=== PATIENT | male | born 1965 | race African-American/Black ===

== ENCOUNTER → 2019-08-02 | Emergency (ER) | payer OTHER ==
[~2019-08-02] VITALS: Ht 170.2 cm; Wt 75.7 kg
[~2019-08-02] MED LIST: AUGMENTIN 875-1 EAC1 ORAL; GUAIFENESI100 MG/5 M ORAL; TESSALON PERLE100 MG ORAL; VENTOLIN HFA18 GM INH
--- NOTE | 2019-08-02 13:35 | NUR ---
ED Nurse Note: Pt ambulated to ED with c/o upper respiratory infection x 3 weeks. Pt is AOx4, on RA, placed on bed.
[2019-08-02 13:40] VITALS: BP 160/86
--- NOTE | 2019-08-02 13:57 | NUR ---
ED Nurse Note: X-ray done
[2019-08-02 14:00] VITALS: BP 160/86
--- NOTE | 2019-08-02 14:00 | NUR ---
ER DISCHARGE NOTE: Pt is cleared to be discharge per ERMD,. Pt is AOx4, on RA, VSS. pt was given dc and prescription instructions, pt was able to verbalize understanding, pt id band removed. pt is able to ambulate with steady gait. Pt left ER with all belongings.
--- NOTE | 2019-08-02 14:03 | Emergency Room Report ---
History of Present Illness General Chief Complaint: Upper Respiratory Illness Source: Patient Present Illness HPI 54-year-old male with history of tobacco smoke here complaining of 3 weeks of cough and congestion with phlegm production. Has not taken medication for symptom relief. Patient reports that he used to drink 3 or 4 cigarettes a day for the past 14 years however has not been able to smoke any in the past 3 weeks. Denies any fever and chills and sore limb at this time. Denies chest pain, shortness of breath, palpitation, headache and dizziness. Sitting comfortably with stable vital signs. Denies drug use, vaping, alcohol intake. Allergies: Coded Allergies: No Known Allergies (Unverified , 08/02/19) Patient History Past Medical History: see triage record Past Surgical History: unable to obtain Pertinent Family History: none Social History: Reports: smoking Immunizations: UTD Reviewed Nursing Documentation: PMH: Agreed; PSxH: Agreed Nursing Documentation-PMH Past Medical History: No Stated History Review of Systems All Other Systems: negative except mentioned in HPI Physical Exam Vital Signs Date Time Temp Pulse Resp B/P (MAP) Pulse Ox O2 Delivery O2 Flow Rate FiO2 08/02/19 13:35 98.2 78 17 160/86 (110) 99 Room Air Sp02 EP Interpretation: reviewed, normal General Appearance: no apparent distress, alert, GCS 15, non-toxic Head: normocephalic, atraumatic Eyes: bilateral eye normal inspection, bilateral eye PERRL ENT: hearing grossly normal, no angioedema, normal voice, nasal congestion, pharyngeal erythema Neck: full range of motion, supple, thyroid normal, supple/symm/no masses Respiratory: chest non-tender, lungs clear, normal breath sounds, no rhonchi, no respiratory distress, no retraction, no accessory muscle use, no wheezing, speaking full sentences Cardiovascular #1: regular rate, rhythm, no edema, no murmur Gastrointestinal: non tender, soft Musculoskeletal: back normal, no calf tenderness Neurologic: alert, motor strength/tone normal, oriented x3, sensory intact, responsive, speech normal Psychiatric: normal inspection, judgement/insight normal Skin: no rash Lymphatic: no adenopathy Medical Decision Making PA Attestation All diagnoses and treatment plans were reviewed and discussed with my supervising physician Dr. Cortes Diagnostic Impression: Primary Impression: Acute bacterial bronchitis ER Course 54-year-old male with history of tobacco smoke here complaining of 3 weeks of cough and congestion with phlegm production. Has not taken medication for symptom relief. Patient reports that he used to drink 3 or 4 cigarettes a day for the past 14 years however has not been able to smoke any in the past 3 weeks. Denies any fever and chills and sore limb at this time. Denies chest pain, shortness of breath, palpitation, headache and dizziness. Sitting comfortably with stable vital signs. Denies drug use, vaping, alcohol intake. Ddx considered but are not limited to: bronchitis, PNA, URI viral, bacterial bronchitis Vital signs: are WNL, pt. is afebrile H&PE are most consistent with: Bacterial bronchitis due to patient tobacco smoke status ORDERS: Chest x-ray, Augmentin, guaifenesin, Tessalon Perles, albuterol ED INTERVENTIONS: None required at this time. DISCHARGE: At this time pt. is stable for d/c to home. Will provide printed patient care instructions, and any necessary prescriptions. Care plan and follow up instructions have been discussed with the patient prior to discharge. Patient to follow with primary care provider, avoid smoking, take medication as directed, if worsening symptoms return to emergency room Chest X-Ray Diagnostic Results Chest X-Ray Diagnostic Results : Chest X-Ray Ordered: Yes # of Views/Limited/Complete: 1 View Indication: Other EP Interpretation: Yes KASI Xray: Interpretation reviewed, by supervising MD, and agrees with findings. Interpretation: no consolidation, no effusion, no pneumothorax Impression: No acute disease Electronically Signed by: Víctor Bello PA-C Last Vital Signs Date Time Temp Pulse Resp B/P (MAP) Pulse Ox O2 Delivery O2 Flow Rate FiO2 08/02/19 13:40 78 17 Room Air 08/02/19 13:40 98.2 160/86 99 Disposition: HOME, SELF-CARE Condition: Stable Scripts Guaifenesin* (GUAIFENESIN) 100 Mg/5 Ml Liquid 5 ML ORAL Q8H, #120 ML 0 Refills Prov: Víctor Watson 08/02/19 Albuterol Sulfate (VENTOLIN HFA) 18 Gm Hfa.aer.ad 2 PUFFS INH EVERY 6 HOURS, #18 GM 0 Refills Prov: Víctor Watson 1/13/20 Benzonatate* (TESSALON PERLE*) 100 Mg Capsule 100 MG ORAL THREE TIMES A DAY, #20 PERLE Prov: Víctor Watson 08/02/19 Amoxicillin/Potassium Clav 875-125* (AUGMENTIN 875-125 TABLET*) 1 Each Tablet 1 TAB ORAL TWICE A DAY for 10 Days, #20 TAB Prov: Víctor Watson 08/02/19 Patient Instructions: Acute Bronchitis, [id number] Additional Instructions: Take medication as directed, follow-up with your primary care provider, avoid smoking tobacco and marijuana. If worsening symptoms return to emergency room Víctor Watson Aug 02, 2019 14:03
--- NOTE | 2019-08-02 16:55 | Diagnostic Imaging Report ---
. Indication: Cough Technique: One view of the chest Comparison: none Findings: Lungs and pleural spaces are clear. Heart size is borderline enlarged. Impression: No acute process
== END | disposition home or self-care (01) ==
LOC: EMR 14:02
DX: J20.9 Acute bronchitis, unspecified (principal); F17.200 Nicotine dependence, unspecified, uncomplicated
CPT/HCPCS: 71045; Z7502; 99283

== ENCOUNTER 2019-09-26 19:09 | Emergency (ER) | payer BC, OTHER ==
[~2019-09-26] VITALS: Ht 170.2 cm; Wt 73.5 kg
[2019-09-26 19:27] VITALS: BP 135/87
--- NOTE | 2019-09-26 19:35 | Emergency Room Report ---
History of Present Illness General Chief Complaint: Upper Respiratory Illness Source: Patient Present Illness HPI 54-year-old male with history of COPD continues to smoke cigarettes here complaining of 2 days of generalized body ache, cough exacerbation and congestion. Complains of wheezing especially at nighttime. Has not taken medication for symptom relief. Denies chest pain, chest pain radiation, headache and dizziness. Denies any recent travel, fever, or been exposed to people who recently traveled. Denies abdominal pain, nausea vomiting. Patient is afebrile and other vital signs are within normal limits. Allergies: Coded Allergies: No Known Allergies (Unverified , 08/02/19) Patient History Past Medical History: see triage record Past Surgical History: none Pertinent Family History: none Social History: Reports: smoking Immunizations: UTD Reviewed Nursing Documentation: PMH: Agreed; PSxH: Agreed Nursing Documentation-PMH Past Medical History: No Stated History Review of Systems All Other Systems: negative except mentioned in HPI Physical Exam Vital Signs Date Time Temp Pulse Resp B/P (MAP) Pulse Ox O2 Delivery O2 Flow Rate FiO2 09/26/19 19:17 98.2 88 16 135/87 (103) 95 Room Air Sp02 EP Interpretation: reviewed, normal General Appearance: no apparent distress, alert, GCS 15, non-toxic Head: normocephalic, atraumatic Eyes: bilateral eye normal inspection, bilateral eye PERRL ENT: hearing grossly normal, normal pharynx, no angioedema, normal voice, TMs + canals normal Neck: full range of motion, supple, no meningismus, no carotid bruits, supple/ symm/no masses Respiratory: chest non-tender, lungs clear, normal breath sounds, no rhonchi, no respiratory distress, no retraction, no wheezing Cardiovascular #1: regular rate, rhythm, no edema, no murmur, normal capillary refill Gastrointestinal: normal bowel sounds, non tender, soft, non-distended, no guarding, no rebound Rectal: deferred Genitourinary: no CVA tenderness Musculoskeletal: back normal, no calf tenderness Neurologic: alert, motor strength/tone normal, oriented x3, sensory intact, responsive, speech normal Psychiatric: judgement/insight normal, memory normal, mood/affect normal, no suicidal/homicidal ideation Skin: no rash Lymphatic: no adenopathy Medical Decision Making PA Attestation All diagnoses and treatment plans were reviewed and discussed with my supervising physician Dr. Cortes Diagnostic Impression: Primary Impression: Pneumonitis ER Course 54-year-old male with history of COPD continues to smoke cigarettes here complaining of 2 days of generalized body ache, cough exacerbation and congestion. Complains of wheezing especially at nighttime. Has not taken medication for symptom relief. Denies chest pain, chest pain radiation, headache and dizziness. Denies any recent travel, fever, or been exposed to people who recently traveled. Denies abdominal pain, nausea vomiting. Patient is afebrile and other vital signs are within normal limits. Ddx considered but are not limited to: bronchitis, PNA, URI viral, bacterial bronchitis, pneumonitis Vital signs: are WNL, pt. is afebrile H&PE are most consistent with: Pneumonitis ORDERS: Influenza swab, chest x-ray, albuterol, prednisone, azithromycin, Phenergan DM ED INTERVENTIONS: 3 treatments of albuterol ipratropium nebulizer treatment DISCHARGE: At this time pt. is stable for d/c to home. Will provide printed patient care instructions, and any necessary prescriptions. Care plan and follow up instructions have been discussed with the patient prior to discharge. Take medication as directed, follow-up with your primary care provider, increase oral hydration, avoid smoking, if worsening symptoms return to the emergency room Chest X-Ray Diagnostic Results Chest X-Ray Diagnostic Results : Chest X-Ray Ordered: Yes # of Views/Limited/Complete: 1 View Indication: Other - cough EP Interpretation: Yes KASI Xray: Interpretation reviewed, by supervising MD, and agrees with findings. Interpretation: no consolidation, no effusion, no pneumothorax Impression: No acute disease Electronically Signed by: Víctor Bello PA-C Last Vital Signs Date Time Temp Pulse Resp B/P (MAP) Pulse Ox O2 Delivery O2 Flow Rate FiO2 09/26/19 19:27 98.2 88 16 135/87 95 Room Air Disposition: HOME, SELF-CARE Condition: Stable Patient Instructions: Pneumonitis Additional Instructions: Take medication as directed, follow-up with your primary care provider, increase oral hydration, avoid smoking, if worsening symptoms return to the emergency room Víctor Watson Sep 26, 2019 19:35
[2019-09-26] MEDS: Albuterol/Ipratropium 3ml neb HHN SCH ×3 (19:45→20:06)
[2019-09-26] MEDS ORDERED: ZITHROMAX250 MG ORAL (20:05)
[2019-09-26] MEDS ORDERED: VENTOLIN HFA18 GM INH (20:05)
[2019-09-26] MEDS ORDERED: PROMETHAZINE-D118 ML ORAL (20:05)
[2019-09-26] MEDS ORDERED: PREDNISONE20 MG ORAL (20:05)
[2019-09-26 20:20] VITALS: BP 144/83
--- NOTE | 2019-09-27 12:49 | Diagnostic Imaging Report ---
Indication: Dyspnea Comparison: None A single view chest radiograph was obtained. Findings: Cardiomediastinal appearance is within normal limits for age. The lungs are clear. Pulmonary vascularity is appropriate. The diaphragmatic contour is smooth and costophrenic angles are sharp. No pleural effusions are identified. The bones are unremarkable. Impression: No acute findings
== END 2019-09-26 20:20 | disposition home or self-care (01) ==
LOC: EMR 19:45
DX: J18.9 Pneumonia, unspecified organism (principal); J44.9 Chronic obstructive pulmonary disease, unspecified; F17.210 Nicotine dependence, cigarettes, uncomplicated
CPT/HCPCS: 71045; 86710; 99284; J7620